=== PATIENT | female | born 1935 | race Caucasian/White ===

== ENCOUNTER 2016-09-24 15:24 | Inpatient (IN) | payer MEDICARE, BC ==
[2016-09-24 16:19] VITALS: BMI 23.4
[2016-09-24] MEDS: DEXTROSE 5%-0.45% NACL 1,000 ML IV SCH (22:44)
[2016-09-25 06:01] LABS: ALT 43 U/L (9-52); AST 40 U/L (14-36); Alkaline Phosphatase 147 U/L (38-126); Anion Gap 8 mmol/L; Blood Urea Nitrogen 20 mg/dL (7-17); Calcium 7.7 mg/dL (8.4-10.2); Carbon Dioxide 27 mmol/L (22-30); Chloride 104 mmol/L (98-107); Glucose 118 mg/dL (74-99); Non-African American GFR(MDRD) >60 (>60 ml/min/1.73 sqM); Sodium 139 mmol/L (137-145); Total Bilirubin 0.9 mg/dL (0.2-1.3); Total Protein 4.3 g/dL (6.3-8.2)
[2016-09-25 06:45] LABS: Anisocytosis Slight; Basophils % (A) 1 %; CH 29.5; CHCM 32.8; Eosinophils # (A) 0.1 k/uL (0-0.7); Eosinophils % (A) 1 %; HCT 36.7 % (34.0-46.0); HDW 2.98; HGB 11.7 gm/dL (11.4-16.0); Luc # (Auto) 0.07; Luc % (Auto) 1; Lymphocytes # (A) 0.3 k/uL (1.0-4.8); Lymphocytes % (A) 4 %; MCH 28.9 pg (25.0-35.0); MCHC 31.9 g/dL (31.0-37.0); MCV 90.5 fL (80.0-100.0); Mean Platelet Volume 7.9; Monocytes # (A) 0.3 k/uL (0-1.0); Monocytes % (A) 3 %; Neutrophils # (A) 7.6 k/uL (1.3-7.7); Neutrophils % (A) 91 %; RBC 4.05 m/uL (3.80-5.40); RDW 19.3 % (11.5-15.5); WBC 8.4 k/uL (3.8-10.6); WBC (Perox) 8.71
[2016-09-25] MEDS: DEXTROSE 5%-0.45% NACL 1,000 ML IV SCH ×2 (07:52→23:37)
[2016-09-25] MEDS ORDERED: ENOXAPARIN 30 MG/0.3 ML SYRINGE SQ SCH (09:00)
[2016-09-25] MEDS ORDERED: RX INFO: IV CONTRAST WAS GIVEN 1 EACH MISC MISCELLANE PRN (09:33)
[2016-09-25] MEDS ORDERED: Potassium Replacement Protocol 1 EACH MISC MISCELLANE PRN ×2 (09:33→19:00)
[2016-09-25] MEDS: CEFEPIME 2 GM in SODIUM CHLORIDE 0.9% 50 ML IVPB SCH ×3 (10:16→23:36)
--- NOTE | 2016-09-25 11:08 | CT ---
EXAMINATION TYPE: CT angio chest DATE OF EXAM: 09/25/2016 10:56 AM COMPARISON: CT cap May 21, 2016. HISTORY: Shortness of breath rule out pulmonary embolism. History of breast cancer. CT DLP: 410 mGycm. Automated Exposure Control for Dose Reduction was Utilized. CONTRAST: CTA scan of the thorax is performed with IV Contrast, patient injected with 55 mL of Omnipaque 350, p ulmonary embolism protocol. MIP Images are created on CT scanner and reviewed. FINDINGS: LUNGS: There are new small right greater than left pleural effusions. There is new additional more fo joão subpulmonic effusion in the left lung base. There is new multifocal groundglass opacity with inte rlobular septal thickening bilaterally suggesting alveolar and interstitial edema. There is redemonst ration of multifocal nodularity system with diffuse metastatic disease difficult to accurately measur e interval change on background of acute alveolar and interstitial findings. For reference left poste rior basilar nodule measures 1.3 cm on long axis on axial image 84 grossly stable from prior study im age 39. No pneumothorax is seen bilaterally. Tracheobronchial tree remains patent. MEDIASTINUM: There is satisfactory enhancement of the pulmonary artery and its branches, there is no CT evidence for pulmonary embolism. There are no greater than 1 cm hilar or mediastinal lymph nodes. No pericardial effusion is seen. Heart size is stable and upper limits of normal. Ascending aorta measures 3.9 cm diameter on axial image 83 and is felt stable. There is mild mixed plaque in visualiz ed thoracic aorta. There is right internal jugular Mediport catheter with tip at caval atrial junctio n. Coronary artery calcification is redemonstrated. OTHER: There are heterogeneous partially calcified liver lesions appear liver is lobulated contour. T here is simple appearing 2 cm cyst laterally mid pole level right kidney on axial image 137. Diffuse sclerotic metastatic disease throughout the bones is redemonstrated most prominent in the spine but a dditional lesions are seen in the left humeral head. Bilateral breast implants are redemonstrated. Th ere is persistent suspicious infolding or intracapsular rupture on the left noted. IMPRESSION: 1. New small bilateral pleural effusions with new bilateral alveolar and interstitial findings sugges t edema, consider fluid overload state. Clinical correlation advised. Developing bilateral infiltrate s less likely but not excluded. 2. No CT evidence for pulmonary embolism. 3. Redemonstration of metastatic breast cancer with suspected stable diffuse osseous, pulmonary, and hepatic metastatic disease.
--- NOTE | 2016-09-25 16:46 | CONS ---
DATE OF CONSULTATION: 09/25/2016 REASON FOR CONSULTATION: Medical management requested by Dr. Broussard. CONSULTATION: This is a very pleasant 81-year-old patient of Dr. Dyer who is undergoing metastatic breast cancer treatment by Dr. Broussard, mets that include the liver and lung. Patient did receive chemo in August and radiation treatment in September 04. Patient presents with decreased appetite, weight loss, and rundown, tired, feels no energy. Just uses a walker and is able to keep some food down and have a bowel movement. Simply feeling exhausted. Denies any fever. REVIEW OF SYSTEMS: CONSTITUTIONAL: Weak, tired. HEENT: As above. RESPIRATORY: None. CARDIOVASCULAR: None. GASTROINTESTINAL: None. GENITOURINARY: None. MUSCULOSKELETAL: None. Dermatologic: None. HEMATOLOGIC: None. PSYCHIATRY: None. NEUROLOGICAL: None. PAST MEDICAL HISTORY: Breast cancer, hypertension, with metastases to the liver, lungs, breast bone and brain. PAST SURGICAL HISTORY: Joint replacement, left total knee and double mastectomy. SOCIAL HISTORY: The patient has support from daughters. Did smoke in the past. No alcohol. FAMILY HISTORY: Cancer. HOME MEDICATIONS: None. ALLERGIES: None. PHYSICAL EXAMINATION: Vital signs on presentation: Temperature 98.4, pulse 87, respiration 22, blood pressure 113/78, pulse ox 80% on room air. GENERAL APPEARANCE: Average build lying in bed, very tired-appearing. EYES: Pupils equal. Conjunctivae pale. HEENT: External appearance of nose and ears normal. Oral cavity dry mucous membranes. NECK: JVD not raised. Mass not palpable. RESPIRATORY: Effort normal. LUNGS: Diminished breath sounds. CARDIOVASCULAR: First and second sounds normal. No edema. ABDOMEN: Soft, nontender. Liver and spleen not palpable. LYMPHATIC: No lymph nodes palpable in neck or axillae. PSYCHIATRY: Alert and oriented x3. Mood and affect slightly low appearing. NEUROLOGICAL: Pupils equal. Cranial nerves grossly intact. Power and sensation grossly intact. INVESTIGATIONS: White count 8.4, hemoglobin 11.7. Potassium 3, BUN 20, creatinine 0.42, albumin 1.9. Chest CTA showing some multifocal ( ) opacity with septal thickening suggestive of interstitial edema; also some multifocal nodularity. There is also sclerotic metastatic disease throughout the bones especially ( ) the spine. Breast implants are noted. ASSESSMENT: 1. Extensively metastatic diffuse breast cancer including the bone, lung and hepatic metastatic disease. 2. Anorexia from underlying cancer. 3. Asthenia from underlying cancer. 4. Moderate protein calorie malnutrition from decreased oral intake. 5. Hypokalemia. 6. Medical debility. PLAN: Patient was started on IV fluids, Lovenox, physical therapy, we will have a dietitian see the patient and give Ensure. Thank you, Dr. Broussard. Will follow with you.
--- NOTE | 2016-09-25 18:05 | P.HPIM ---
History of Present Illness H&P Date: 09/25/16 Chief Complaint: weakness, moderate malnutrition Ms. Adams is a very pleasant female pt of Dr. Broussard with a history of breast cancer, original diagnosis in 1983, she had T2N1 carcinoma with 5/21 lymph nodes positive for metastatic disease, ER/WI positive. She had six months of chemotherapy and was on prolonged tamoxifen. She did well until 2008 when she developed liana metastases involving the left ribs, rib was resected, confirming metastatic disease, she was placed on Arimidex. In the last 1-2 years pt was found to have another destructive bone lesion involving the left ribs, she received palliative radiation with pain improvement. She was then started on Aromasin and did well until 2013 when she was noted to have rising CA15-3, CT revealed small lung mets, bone scan was stable. She was started on Fasladex. Treatment follow up CT revealed progression of lung and now liver involvement. She was started on Afinitor and Aromasin with Xgeva. Initial follow up CT showed stable disease. She went to [facility] and on follow up bone scan and CT CAP in September 2014 revealed progression, she was switched to Xeloda. She did require dose reduction due to side effects of treatment. In Mar her Ca 15-3 was rising and her side effects were becoming unbearable, she was changed to gemzar. She went back to [facility] for the winter and returned in September 2015, her Oncologist there had changed her to halavin, she received 1 cycle in [place], supported with GCS-F, EPO and Xgeva. She continued on halaven and went to [facility] May 2016 where she was unfortunately diagnosed in August 2016 diffuse brain mets, she received whole brain XRT. She is now back in [place], falling, progressive weakness, unable to care for own basic needs, poor appetite at home. She is being admitted for supportive care, when I saw her this AM she was sleeping but arounsed to voice, she denied headache, nausea, pain,hunger, need to go to the bathroom. Review of Systems All systems: negative Constitutional: Reports as per HPI Past Medical History Past Medical History: Cancer, Hypertension Additional Past Medical History / Comment(s): CA in liver lungs breast bones and brain last radiation September 04 last chemo feburary History of Any Multi-Drug Resistant Organisms: None Reported Past Surgical History: Hysterectomy, Joint Replacement Additional Past Surgical History / Comment(s): Left Total knee Double masectomy 1984 Past Anesthesia/Blood Transfusion Reactions: No Reported Reaction Additional Past Anesthesia/Blood Transfusion Reaction / Comment(s): Difficulty with intubation Past Psychological History: No Psychological Hx Reported Smoking Status: Former smoker Past Alcohol Use History: None Reported Past Drug Use History: None Reported - Past Family History Mother Family Medical History: Cancer Father Family Medical History: Hypertension Medications and Allergies Home Medications Medication Instructions Recorded Confirmed Type No Known Home Medications [No 09/24/16 09/24/16 History Known Home Medications] Allergies Allergy/AdvReac Type Severity Reaction Status Date / Time No Known Allergies Allergy Verified 02/03/16 10:29 Physical Exam Vitals: Vital Signs Temp Pulse Resp BP Pulse Ox 09/25/16 08:11 93 L 09/25/16 07:05 86 L 09/25/16 07:00 97.8 F 91 20 128/70 83 L 09/25/16 00:00 22 09/24/16 22:44 22 90 L 09/24/16 22:33 98.3 F 91 22 140/70 85 L Intake and Output 09/25/16 09/25/16 09/25/16 06:59 14:59 22:59 Intake Total 240 Balance 240 Intake: Oral 240 Other: # Voids 1 1 Weight 62 kg Patient Weight 09/26/16 06:59 Weight 62 kg - Constitutional General appearance: average body habitus, cooperative, no acute distress - EENT Eyes: anicteric sclerae, PERRLA, normal appearance ENT: normal oropharynx - Neck Neck: no lymphadenopathy - Respiratory Respiratory: bilateral: diminished - Cardiovascular Heart sounds: normal: S1, S2 leg Peripheral Edema: bilateral: Trace - Gastrointestinal General gastrointestinal: no absent bowel sounds, no decreased bowel sounds, no distended, no hepatomegaly, no hyperactive bowel sounds, normal bowel sounds, no organomegaly, no rigid, no scaphoid, soft, no splenomegaly, no tenderness, no umbilical hernia, no ventral hernia - Musculoskeletal Musculoskeletal: generalized weakness - Psychiatric Psychiatric: A&O x's 3, appropriate affect, intact judgment & insight Results CBC & Chem 7: 09/25/16 05:35 09/25/16 05:35 Labs: Abnormal Lab Results - Last 24 Hours (Table) 09/25/16 09/25/16 Range/Units 05:35 05:35 RDW 19.3 H (11.5-15.5) % Lymphocytes # 0.3 L (1.0-4.8) k/uL Potassium 3.0 L* (3.5-5.1) mmol/L BUN 20 H (7-17) mg/dL Creatinine 0.42 L (0.52-1.04) mg/dL Glucose 118 H (74-99) mg/dL Calcium 7.7 L (8.4-10.2) mg/dL AST 40 H (14-36) U/L Alkaline Phosphatase 147 H (38-126) U/L Total Protein 4.3 L (6.3-8.2) g/dL Albumin 1.9 L (3.5-5.0) g/dL CT scan - chest: report reviewed Thrombosis Risk Factor Assmnt - DVT/VTE Prophylaxis DVT/VTE Prophylaxis: Pharmacologic Prophylaxis ordered - Choose All That Apply Each Risk Factor Represents 3 Points: Age 75 years or older Thrombosis Risk Factor Assessment Total Risk Factor Score: 3 Thrombosis Risk Factor Assessment Level: Moderate Risk Assessment and Plan (1) Metastatic breast carcinoma Narrative/Plan: Pt and family understand plan to be 2-3 weeks of supportive care, maybe rehab, and at that time Dr. Broussard will reevaluate pt. Status: Acute (2) Weakness generalized Narrative/Plan: PT to evaluate and treat Status: Acute (3) Hypokalemia due to inadequate potassium intake Narrative/Plan: Potassium protocol ordered, labs in AM Status: Acute (4) Severe protein-calorie malnutrition Narrative/Plan: Dietitian consulted Status: Acute (5) Hypoxia Narrative/Plan: CTA chest done as pt requiring O2 at high levels, DVT prophylaxis ordered. CTA report reviewed-no PE Status: Acute Plan: Dr. Herrera consulted for medical management
[2016-09-25] MEDS: POTASSIUM CHLORIDE ER 20 MEQ TAB.ER PO SCH ×2 (19:40→19:45)
[2016-09-25] MEDS: POTASSIUM CHLORIDE 10 MEQ in WATER FOR INJECTION 1 100ML.BAG IVPB SCH (21:32)
[2016-09-25] MEDS ORDERED: POTASSIUM CHLORIDE 20 MEQ in WATER FOR INJECTION 1 100ML.BAG IVPB STA (23:35)
[2016-09-26] MEDS: ENOXAPARIN 40 MG/0.4 ML SYRINGE SQ SCH (08:32)
[2016-09-26] MEDS: CEFEPIME 2 GM in SODIUM CHLORIDE 0.9% 50 ML IVPB SCH ×2 (08:32→16:37)
[2016-09-26] MEDS: DEXTROSE 5%-0.45% NACL 1,000 ML IV SCH (08:40)
--- NOTE | 2016-09-26 08:43 | CDI ---
In responding to this query, please exercise your independent professional judgment. The [facility] Coding Staff and Clinical Documentation Specialists appreciate your assistance in clarifying documentation, maintaining compliance with coding guidelines, accurately documenting patients condition and capturing severity of illness. The fact that a question is asked does not imply that any particular answer is desired or expected. Communication forms are a method of clarifying documentation and are not made part of the Legal Health Record. Thank you in advance for your clarification. Last Revision, May 2015 [facility] [address] [place] [address] Documentation Clarification Form Date: 09/26/2016 From: KAHTRYN Kincaid, CCDS Admit Date: 09/24/2016 Patient Name: Zahra Adams Visit Number: [id number] Dr Broussard and Leigha Bradshaw NP Patient history/risk factors Metastatic breast carcinoma Clinical Indicators: Weakness Hypokalemia Hypoxia CT chest: new small bilateral pleural effusion with new bilateral alveolar and interstitial findings suggest edema, consider fluid overload state. Developing bilateral infiltrates less likely but not excluded Vital Signs: sats 80% on room air, RR 22 Treatment: O2 nasal cannula IV Cefepime In your professional opinion, can you please clarify the reason IV Cefepime was ordered and administered? Other (please specify) Unable to determine Please document in your progress notes and discharge summary in order to capture severity of illness and risk of mortality. Include clinical findings that support your diagnosis. FYI: Press F11 to launch patient chart. Place X here if this finding has no clinical significance, is not applicable or if you are not able to provide any additional documentation. ALYSA
--- NOTE | 2016-09-26 08:52 | CDI ---
In responding to this query, please exercise your independent professional judgment. The [facility] Coding Staff and Clinical Documentation Specialists appreciate your assistance in clarifying documentation, maintaining compliance with coding guidelines, accurately documenting patients condition and capturing severity of illness. The fact that a question is asked does not imply that any particular answer is desired or expected. Communication forms are a method of clarifying documentation and are not made part of the Legal Health Record. Thank you in advance for your clarification. Last Revision, May 2015 Joaquimlucretia Garcia [address] [facility] [place] [address] Documentation Clarification Form Date: 09/26/2016 From: KATHRYN Kincaid, CCDS Admit Date: 09/24/2016 Patient Name: Zahra Adams Visit Number: [id number] Dr Broussard and Leigha Bradshaw NP History/Risk Factors: Metastatic breast carcinoma Clinical Indicators: Vital signs/Pulse oximetry: sats 80% room air, RR [address] chest: new small bilateral pleural effusions Hypokalemia - K+ 3.0 Hypoxia is documented in H&P Treatment: IV and PO Potassium IV Cefepime IV fluids O2: nasal cannula 2L up to 10L high flow In your professional opinion, can you please clarify if these findings signify one of the following conditions? o Acute Respiratory failure with hypoxia o Acute Respiratory Distress o Other Diagnosis, please specify o Unable to determine Please document in your progress notes and discharge summary in order to capture severity of illness and risk of mortality. Include clinical findings that support your diagnosis. FYI: Press F11 to launch patient chart. Place X here if this finding has no clinical significance, is not applicable or if you are not able to provide any additional documentation. MARNIED
[2016-09-26] MEDS: PANTOPRAZOLE 40 MG/10 ML VIAL IVP SCH (11:21)
--- NOTE | 2016-09-26 15:51 | P.PN ---
Subjective Principal diagnosis: Metastatic breast cancer, weakness, dehydration Pt seen today in follow up, she ate some breakfast, she is in good spirits, denies nausea, she is comfortable breathing, no pain, denies need to use bathroom. She is anxious to work with PT. Objective - Vital Signs Vital signs: Vital Signs Temp 98.4 F 09/26/16 07:00 Pulse 97 09/26/16 07:00 Resp 19 09/26/16 07:00 BP 152/74 09/26/16 07:00 Pulse Ox 89 L 09/26/16 07:00 Intake & Output 09/25/16 09/26/16 09/26/16 18:59 06:59 18:59 Intake Total 1200 750 Balance 1200 750 Weight 62 kg Intake: IV 1200 600 Dextrose 5%-0.45% NaCl 1, 1200 600 000 ml @ 75 mls/hr IV . [id number] CARLOS Rx#:[id number] Intake, IV Titration 50 Amount Cefepime 2 gm In Sodium 50 Chloride 0.9% 50 ml @ 100 mls/hr IVPB Q8HR CARLOS Rx# :[id number] Oral 100 Other: # Voids 1 2 # Bowel Movements 1 - Constitutional General appearance: Present: average body habitus, cooperative, no acute distress - EENT Eyes: Present: anicteric sclerae, PERRLA ENT: Present: normal oropharynx - Respiratory Respiratory: left: wheezing (soft, end expiratory), bilateral: diminished ( anteriorly) - Cardiovascular Heart sounds: normal: S1, S2 Abnormal Heart Sounds: Present: systolic murmur - Peripheral edema leg Peripheral Edema: right: 3+ (doppler negative), left: None - Gastrointestinal General gastrointestinal: Present: normal bowel sounds, soft. Absent: absent bowel sounds, decreased bowel sounds, distended, hepatomegaly, hyperactive bowel sounds, organomegaly, rigid, scaphoid, splenomegaly, tenderness, umbilical hernia, ventral hernia - Musculoskeletal Musculoskeletal: Present: generalized weakness, strength equal bilaterally - Psychiatric Psychiatric: Present: A&O x's 3, appropriate affect, intact judgment & insight - Labs CBC & Chem 7: 09/25/16 05:35 09/25/16 21:51 Assessment and Plan (1) Metastatic breast carcinoma Narrative/Plan: Plan is to DC to rehab when pt is feeling better. Dr. Broussard will reevaluate pt for treatment options in 2-3 weeks. Pt is aware and understands plan. Status: Acute (2) Weakness generalized Narrative/Plan: Pt is participating in PT. We will look for PT evaluation of patient progress. Status: Acute (3) Hypokalemia due to inadequate potassium intake Narrative/Plan: Improved after supplementation Status: Acute (4) Severe protein-calorie malnutrition Narrative/Plan: Dietitian has seen pt, supplements ordered. Status: Acute (5) Hypoxia Narrative/Plan: Pt is still requiring hi flow O2 to maintain O2 sats. CTA was negative for PE. Cont abx. CXR in AM. Status: Acute Plan: Dr. Herrera consulted for medical management GI and DVT prophylaxis
--- NOTE | 2016-09-26 23:30 | PN ---
DATE OF SERVICE: 09/26/2016 PRESENTING COMPLAINT: Weak and tired. INTERVAL HISTORY: This is a patient with metastatic breast cancer who presented with multiple problems, including anorexia, asthenia, malnutrition, medical debility. Patient's daughter is at the bedside today. A bit more perky today. Did eat about 25% to 50%. Did get out of bed with Physical Therapy ( ) she took a few steps. Review of systems done for constitutional, cardiovascular, GI, pulmonary; relevant findings as above. Current medications are reviewed that include IV fluids. On examination, temperature 98.4, pulse 97, respiration 19, blood pressure 152/74, pulse ox 89% on 10 L. GENERAL APPEARANCE: Lying in bed, tired-appearing, but a shade better than yesterday. EYES: Pupils equal. Conjunctivae pale. NECK: JVD not raised. Mass not palpable. RESPIRATORY: Effort increased. Diminished breath sounds. CARDIOVASCULAR: First and second sounds normal. Some edema is present. ABDOMEN: Soft, nontender. Liver and spleen not palpable. PSYCHIATRY: Answering simple questions. INVESTIGATIONS: Potassium 3.5. ASSESSMENT: 1. Extensive metastatic diffuse breast cancer, including the bone, lungs and hepatic metastatic disease. 2. Chronic hypoxic respiratory failure, probably from metastatic disease. 3. Anorexia from underlying cancer. 4. Asthenia from underlying cancer. 5. Moderate protein-calorie malnutrition from decreased oral intake. 6. Medical debility; working with Physical Therapy. 7. Hypokalemia, improved. Given patient's clinical scenario with no sputum, no fever, no white count, chest x-ray findings are more suggestive of malignancy than infection. Will discuss with Oncology. Maybe antibiotics can be discontinued.
[2016-09-27] MEDS: DEXTROSE 5%-0.45% NACL 1,000 ML IV SCH (00:20)
[2016-09-27] MEDS: CEFEPIME 2 GM in SODIUM CHLORIDE 0.9% 50 ML IVPB SCH ×2 (00:20→10:47)
[2016-09-27 08:49] VITALS: BP 142/77; PULSE 89; RESP 16; TEMP 98.2
[2016-09-27] MEDS ORDERED: DOCUSATE 100 MG CAP PO SCH (09:00)
[2016-09-27] MEDS: PANTOPRAZOLE 40 MG/10 ML VIAL IVP SCH (10:48)
[2016-09-27] MEDS: ENOXAPARIN 40 MG/0.4 ML SYRINGE SQ SCH (10:48)
[2016-09-27] MEDS: HYDROcodone/APAP 5-325MG 1 EACH TAB PO PRN ×2 (10:56→16:45)
--- NOTE | 2016-09-27 12:28 | P.PN ---
Subjective Principal diagnosis: Metastatic breast cancer, weakness, dehydration Pt seen today in follow up, she is sleeping very soundly this am, family notes increased lethargy, mild confusion and increased RR, she did arouse briefly, denied pain, nausea or need to use bathroom. Objective - Vital Signs Vital signs: Vital Signs Temp 98.2 F 09/27/16 07:00 Pulse 89 09/27/16 07:00 Resp 16 09/27/16 07:00 BP 142/77 09/27/16 07:00 Pulse Ox 88 L 09/27/16 07:00 Intake & Output 09/26/16 09/27/16 09/27/16 18:59 06:59 18:59 Intake Total 990 590 120 Balance 990 590 120 Intake: IV 600 Dextrose 5%-0.45% NaCl 1, 600 000 ml @ 75 mls/hr IV . [id number] CARLOS Rx#:[id number] Intake, IV Titration 50 Amount Cefepime 2 gm In Sodium 50 Chloride 0.9% 50 ml @ 100 mls/hr IVPB Q8HR CARLOS Rx# :[id number] Oral 340 590 120 Other: # Voids 1 # Bowel Movements 1 - Constitutional Constitutional Comment(s): 10L hi flow O2, pt is sleeping, breathing is unlabored, no s/s pain or discomfort. General appearance: Present: average body habitus, no acute distress - Labs CBC & Chem 7: 09/25/16 05:35 09/25/16 21:51 Assessment and Plan (1) Metastatic breast carcinoma Narrative/Plan: Plan was to try to rehabilitate pt and see if she wanted to try some more treatment but, she appears to be declining since admit, family agrees with this assessment. Case management and Social Work involved, see below for plan. Status: Acute (2) Weakness generalized Narrative/Plan: Will discuss case with PT for their evaluation of pt ability to rehabilitate Status: Acute (3) Hypokalemia due to inadequate potassium intake Narrative/Plan: Labs in AM Status: Acute (4) Severe protein-calorie malnutrition Narrative/Plan: Dietitian has evaluated and supplements ordered, pt appetite is waning. Status: Acute (5) Hypoxia Narrative/Plan: Requiring hi flow O2, cont treatment Status: Acute Plan: After speaking with pt yesterday and her statements of being "ready to go" when the "alia upstairs" is ready for her. Her family states the same sort of conversations with pt. It is highly unlikely that pt will be able to rehabilitate-requires hi flow O2 and laying in bed- perpetuates this fact. Family wants to discuss comfort/hospice options (hospice house, [facility] with hospice, home hospice). I have spoken with case filler and group social worker who will get the info to pt and family. Decisions re: plan of care will be communicated within the next 24 hours. For now pt will remain on care as ordered Pain meds and stool softeners ordered
--- NOTE | 2016-09-28 06:44 | PN ---
DATE OF SERVICE: 09/27/2016 PRESENTING COMPLAINT: Weak and tired. INTERVAL HISTORY: This is a patient with metastatic breast cancer presented with multiple problems including anorexia, asthenia, malnutrition, medical debility. Patient earlier today spoke with oncology team and decided to go hospice. Patient did tolerate some diet. Tired, sitting up, lying in bed. Review of systems done for constitutional, cardiovascular, GI, pulmonary; relevant findings as above. Current medications are reviewed. On examination, temperature 98.2, pulse 89, respirations 16, blood pressure 142/77, pulse ox 88% on high flow oxygen. EYES: Pupils equal. Conjunctivae pale. NECK: JVD not raised. Mass not palpable. RESPIRATORY: Effort increased. LUNGS: Diminished breath sounds. CARDIOVASCULAR: First and second sounds normal. Edema is present. ABDOMEN: Soft, nontender. Liver and spleen not palpable. PSYCHIATRY: Awake, answering questions. INVESTIGATIONS: No blood work from today. ASSESSMENT: 1. Extensive metastatic diffuse breast cancer including the bone, lungs and hepatic metastatic disease. 2. Acute hypoxic respiratory failure from metastatic lung cancer. 3. Chronic hypoxic respiratory failure from metastatic disease. 4. Anorexia from underlying cancer. 5. Asthenia from underlying cancer. 6. Moderate protein calorie malnutrition with decreased oral intake from cancer. 7. Medical debility. PLAN: I talked to Leigha from oncology team, had spoke to the patient and patient is ready for hospice, which is appropriate. I also spoke to patient's son and daughter. Questions were answered. Oncology team is actually handling the medications. Total time spent today was about 40 minutes with over 25 minutes of discussion.
--- NOTE | 2016-09-28 12:41 | CDI ---
In responding to this query, please exercise your independent professional judgment. The [facility] Coding Staff and Clinical Documentation Specialists appreciate your assistance in clarifying documentation, maintaining compliance with coding guidelines, accurately documenting patients condition and capturing severity of illness. The fact that a question is asked does not imply that any particular answer is desired or expected. Communication forms are a method of clarifying documentation and are not made part of the Legal Health Record. Thank you in advance for your clarification. 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 Could you please further specify? Patient history/risk factors Metastatic breast carcinoma Clinical Indicators: Weakness Hypokalemia Hypoxia CT chest: new small bilateral pleural effusion with new bilateral alveolar and interstitial findings suggest edema, consider fluid overload state. Developing bilateral infiltrates less likely but not excluded Vital Signs: sats 80% on room air, RR 22 Treatment: O2 nasal cannula IV Cefepime In your professional opinion, can you please clarify the reason IV Cefepime was ordered and administered? Other (please specify) Unable to determine Please document in your progress notes and discharge summary in order to capture severity of illness and risk of mortality. Include clinical findings that support your diagnosis. FYI: Press F11 to launch patient chart. Place X here if this finding has no clinical significance, is not applicable or if you are not able to provide any additional documentation. ALYSA
--- NOTE | 2016-09-28 14:00 | P.DS ---
Providers Date of admission: 09/24/16 15:24 Expected date of discharge: 09/27/16 Attending physician: Castillo Broussard Consults: 09/25/16 09:33 Consult Physician Routine Consulting Provider: Ramirez Herrera Consult Reason/Comments: medical management Do you want consulting provider notified?: Yes Primary care physician: Donavon Dyer - Discharge Diagnosis(es) (1) Metastatic breast carcinoma Status: Acute Priority: Medium (2) Weakness generalized Status: Acute Priority: High (3) Hypokalemia due to inadequate potassium intake Status: Acute Priority: High (4) Severe protein-calorie malnutrition Status: Acute Priority: High (5) Hypoxia Status: Acute Priority: High Hospital Course: Pt was admitted with weakness, hypoxia, and dehydration, metastatic breast cancer, with intent to provide supportive treatments and evaluate progress for possible rehabilitation. Pt did not improve as anticipated and in fact progressively has become weaker. Pt and family did come to the agreement that pt would prefer to have comfort measures only and they would like to pursue hospice care. This was facilitated with case management and social work and the pt has been accepted to hospice house and is being discharged. Pertinent Studies: none Procedures: none Patient Condition at Discharge: Poor Plan - Discharge Summary Discharge Medication List No Known Home Medications [No Known Home Medications] 09/24/16 [History] Patient Instructions/Handouts: Hospice Care (GEN) Activity/Diet/Wound Care/Special Instructions: Diet as tolerated activity as tolerated Discharge Disposition: DISCH TO HOSPICE MED FACILTY
== END 2016-09-27 17:41 | disposition hospice, inpatient (51) | DRG 640 ==
LOC: 5ONC 15:24
PROVIDERS: ADMIT Internal Medicine Hematology & Oncology; ATTEND Internal Medicine Hematology & Oncology
DX: E87.6 Hypokalemia (principal); J96.21 Acute and chronic respiratory failure with hypoxia; E43 Unspecified severe protein-calorie malnutrition; J18.9 Pneumonia, unspecified organism; C79.31 Secondary malignant neoplasm of brain; C78.7 Secondary malignant neoplasm of liver and intrahepatic bile duct; C78.00 Secondary malignant neoplasm of unspecified lung; Z66 Do not resuscitate; Z51.5 Encounter for palliative care; C77.9 Secondary and unspecified malignant neoplasm of lymph node, unspecified; C79.51 Secondary malignant neoplasm of bone; E86.0 Dehydration; I10 Essential (primary) hypertension; Z17.0 Estrogen receptor positive status [ER+]; Z85.3 Personal history of malignant neoplasm of breast; Z87.891 Personal history of nicotine dependence; Z82.49 Family history of ischemic heart disease and other diseases of the circulatory system
CPT/HCPCS: 71275; 80053; 84132; 85025